=== PATIENT | female | born 1945 ===

== ENCOUNTER 2020-06-26 15:08 | Outpatient (REF) | payer OTHER, SELFPAY | END 2020-06-26 15:28 | LOC: NCHCN 15:08 | PROVIDERS: Visit Provider Nurse Practitioner Community Health | DX: R30.0 Dysuria (principal) | CPT/HCPCS: 87086 ==

== ENCOUNTER 2021-05-11 16:55 | Outpatient (REF) | payer OTHER, SELFPAY ==
[2021-05-11 22:37] LABS: Abs Immature Grans 0.07 10^3/uL (0.0-0.06); Absolute Lymphocyte Count 2.79 10^3/uL (1.2-3.4); Absolute Monocyte Count 0.78 10^3/uL (0.1-0.8); Absolute Neutrophil Count 6.44 10^3/uL (1.2-6.7); Basophils % 0.9; Eosinophils % 3.8; HCT 38.6 % (36.0-46.0); HGB 13.9 g/dL (11.2-15.7); Immature Grans % 0.7; Lymphocytes % 26.4; MCH 32.9 pg (27.0-33.0); MCV 91.5 fL (80-95); MPV 10.8 fL (8.0-11.0); Monocytes % 7.4; Neutrophils % 60.8; Nucleated RBC 0 %; Platelet Count 518 10^3/uL (130-400); RBC 4.22 10^6/uL (3.93-5.22); RDW 15.9 % (11.7-14.6); RDW-SD 49.4 fL; WBC 10.58 10^3/uL (4.4-10.8)
[2021-05-11 22:51] LABS: ALT 19 U/L (14-59); AST 18 U/L (15-37); Alkaline Phosphatase 125 U/L (46-116); Bilirubin, Direct 0.2 mg/dL (0.0-0.2); Bilirubin, Total 0.6 mg/dL (0.2-1.0); CREATININE 1.2 mg/dL (0.55-1.02); Total Protein 7.5 g/dL (6.4-8.2)
== END 2021-05-11 16:56 | disposition home or self-care (01) ==
LOC: LBN 16:55
PROVIDERS: Nurse Practitioner Community Health
DX: M05.79 Rheumatoid arthritis with rheumatoid factor of multiple sites without organ or systems involvement (principal); R53.83 Other fatigue; Z79.899 Other long term (current) drug therapy; R79.82 Elevated C-reactive protein (CRP); D84.9 Immunodeficiency, unspecified; N18.1 Chronic kidney disease, stage 1
CPT/HCPCS: 80076; 82565; 85025; 86140

== ENCOUNTER 2021-05-15 15:53 | Outpatient (REF) | payer OTHER, SELFPAY ==
[2021-05-15 20:46] LABS: Absolute Basophil Count 0.05 10^3/uL (0.0-0.2); Absolute Lymphocyte Count 1.54 10^3/uL (1.2-3.4); Absolute Monocyte Count 0.96 10^3/uL (0.1-0.8); Basophils % 0.4; Eosinophils % 1.8; HCT 35.6 % (36.0-46.0); HGB 12.5 g/dL (11.2-15.7); Immature Grans % 0.8; Lymphocytes % 11.7; MCH 32.4 pg (27.0-33.0); MCHC 35.1 % (32.0-36.0); MCV 92.2 fL (80-95); MPV 11.1 fL (8.0-11.0); Monocytes % 7.3; Nucleated RBC 0 %; Platelet Count 409 10^3/uL (130-400); RBC 3.86 10^6/uL (3.93-5.22); RDW 15.3 % (11.7-14.6); RDW-SD 50.5 fL; WBC 13.12 10^3/uL (4.4-10.8)
[2021-05-15 20:49] LABS: Absolute Eosinophil Count 0.24 10^3/uL (0.0-0.7); Absolute Neutrophil Count 10.23 10^3/uL (1.2-6.7)
[2021-05-15 21:09] LABS: ALT 18 U/L (14-59); AST 16 U/L (15-37); Albumin 3.7 g/dL (3.4-5.0); Alkaline Phosphatase 115 U/L (46-116); Anion Gap 13.3 mmol/L (3-11); BUN 13 mg/dL (7-18); Bilirubin, Total 1.3 mg/dL (0.2-1.0); CO2 23.7 mmol/L (21.0-32.0); CREATININE 1.1 mg/dL (0.55-1.02); Calcium 9.5 mg/dL (8.5-10.1); Chloride 101 mmol/L (98-107); Estimated GFR 48.42 (mL/min/1.73m2); Glucose 112 mg/dL (74-106); Lipase 22 U/L (73-393); Potassium 3.7 mmol/L (3.5-5.1); Sodium 138 mmol/L (136-145); TSH 2.14 uIU/mL (0.36-3.74); Total Protein 7.3 g/dL (6.4-8.2)
[2021-05-15 21:27] LABS: Hemoglobin A1C 6.5 % (<5.7)
== END 2021-05-15 15:54 | disposition home or self-care (01) ==
LOC: NCHCN 15:53
PROVIDERS: PCP Family Medicine; Visit Provider Family Medicine
DX: E03.9 Hypothyroidism, unspecified (principal); I10 Essential (primary) hypertension; E11.9 Type 2 diabetes mellitus without complications; R42 Dizziness and giddiness; R11.0 Nausea
CPT/HCPCS: 80053; 83690; 83036; 84443; 85025; 87086

== ENCOUNTER 2021-06-22 16:47 | Outpatient (REF) | payer OTHER, SELFPAY ==
[2021-06-22 21:02] LABS: HGB 12.7 g/dL (11.2-15.7); MCH 33.5 pg (27.0-33.0); MCHC 36.3 % (32.0-36.0); MCV 92.3 fL (80-95); MPV 11.3 fL (8.0-11.0); Platelet Count 448 10^3/uL (130-400); RBC 3.79 10^6/uL (3.93-5.22); RDW 16.4 % (11.7-14.6); RDW-SD 53.3 fL; WBC 11.81 10^3/uL (4.4-10.8)
[2021-06-22 21:12] LABS: ALT 18 U/L (14-59); AST 16 U/L (15-37); Albumin 3.9 g/dL (3.4-5.0); Alkaline Phosphatase 109 U/L (46-116); Bilirubin, Direct 0.2 mg/dL (0.0-0.2); Bilirubin, Total 0.8 mg/dL (0.2-1.0); C-Reactive Protein 1.07 mg/dL (0.0-0.3); CREATININE 1.1 mg/dL (0.55-1.02); Estimated GFR 48.42 (mL/min/1.73m2); Total Protein 7.2 g/dL (6.4-8.2)
== END 2021-06-22 16:48 | disposition home or self-care (01) ==
LOC: LBN 16:47
PROVIDERS: PCP Family Medicine
DX: M05.79 Rheumatoid arthritis with rheumatoid factor of multiple sites without organ or systems involvement (principal); R53.83 Other fatigue; N18.1 Chronic kidney disease, stage 1; R79.82 Elevated C-reactive protein (CRP); D84.9 Immunodeficiency, unspecified; Z79.899 Other long term (current) drug therapy
CPT/HCPCS: 80076; 85027; 82565; 86140